=== PATIENT | male | born 1960 | race Caucasian/White ===

== ENCOUNTER 2016-06-13 09:59 | Day surgery (SDC) | payer BC ==
[2016-06-12 14:46] VITALS: BMI 42.6
[2016-06-13 11:59] VITALS: TEMP 98.7
[2016-06-13 12:39] VITALS: BP 130/72; PULSE 86
--- NOTE | 2016-06-16 13:36 | PATH ---
Surgical Pathology Report Patient Name: JOE LICEA [facility] Rec. #: [id number] /Age/Gender: 1960 (Age: 56) / M Account: [id number] Location: U-ENDOSCOPY Taken: 06/13/2016 Received: 06/13/2016 Reported: 06/16/2016 Physicians: Oleg Elmore M.D. Specimen(s) Received A: BX MID TRANSVERSE COLON POLYP B: RECTAL POLYP Clinical History History of colon polyps Diverticulosis, colon polyps Final Diagnosis A. 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 B. COLON, CECUM, POLYP, BIOPSY: TUBULAR ADENOMA. Electronically Signed Hemanth Greenfield M.D. Gross Description A. Received in formalin, labeled "biopsy mid transverse colon polyp" is a sierra, polypoid portion of soft tissue measuring 0.3 cm in greatest dimension. The specimen is submitted in toto in one cassette. B. Received in formalin, labeled "biopsy cecal polyp" are 2 sierra, irregular portions of soft tissue measuring 0.2 and 0.5 cm in greatest dimension. The specimens are submitted in toto in one cassette. 06/13/201606/13/2016
== END 2016-06-13 12:39 | disposition home or self-care (01) ==
LOC: JASU-ENDO 09:59
PROVIDERS: ATTEND Internal Medicine Gastroenterology
PROC: 0DBH8ZX Excision of Cecum, Via Natural or Artificial Opening Endoscopic, Diagnostic (ICD-10-PCS; 2016-06-13)
PROC: 0DBL8ZX Excision of Transverse Colon, Via Natural or Artificial Opening Endoscopic, Diagnostic (ICD-10-PCS; principal; 2016-06-13 11:00)
DX: Z51.11 Encounter for antineoplastic chemotherapy (principal); Z83.71 Family history of colonic polyps; D12.0 Benign neoplasm of cecum; D12.3 Benign neoplasm of transverse colon; K57.30 Diverticulosis of large intestine without perforation or abscess without bleeding
CPT/HCPCS: 88305-TC

== ENCOUNTER 2022-01-17 10:41 | Emergency (ER) | payer BC ==
[2022-01-17 11:10] VITALS: BP 157/97; PULSE 63; RESP 16; TEMP 100; BMI 38.0
[2022-01-17 11:39] LABS: EPITHELIAL CELLS RARE /hpf
[2022-01-17] MEDS ORDERED: ACETAMINOPHEN 500 MG TABLET (FP) PO ONE (12:32)
[2022-01-17] MEDS ORDERED: ACETAMINOPHEN 500 MG TABLET (FP) ONE (12:42)
[2022-01-17 13:06] LABS: HEMATOCRIT 44.5 % (35.4-49); HEMOGLOBIN 15.4 G/dL (11.7-16.9); MCH 32.3 pg (25.7-33.7); MCHC 34.5 g/dl (32.0-35.9); MEAN CELL VOLUME 93.5 fl (80-96); MEAN PLT VOLUME 8.2 fl (7.5-11.1); PLATELET COUNT 157.2 10^3/uL (134-434); RBC 4.76 10^6/uL (4.00-5.60); RDW 14.1 % (11.9-15.9); WHITE BLOOD COUNT 6.1 10^3/uL (4.0-10.8)
[2022-01-17 13:15] LABS: ALBUMIN 4.4 g/dl (3.4-5.0); BILIRUBIN,TOTAL 0.7 mg/dl (0.2-1); CALCIUM 9.1 mg/dl (8.5-10); CREATININE 0.9 mg/dl (0.55-1.3); PLATELET ESTIMATE ADEQUATE; TOT PROT 7.4 g/dl (6.4-8.2)
== END 2022-01-17 14:22 | disposition home or self-care (01) ==
LOC: FER 10:41
DX: R31.9 Hematuria, unspecified (principal)
CPT/HCPCS: 0241U-QW; 36415; 80053; 81003; 81015; 85025; 87086; 99283-25